=== PATIENT | female | born 1990 | race Caucasian/White ===

== ENCOUNTER 2017-01-29 09:52 | Day surgery (SDC) | payer OTHER ==
[~2017-01-29 09:52] MED LIST: Buffered Lidocaine 0.9% SYRIN* 5 ML/SYR SYRINGE INTRADERM ONE; Buffered Lidocaine 0.9% SYRIN* 5 ML/SYR SYRINGE ONE; Dexamethasone IV* 4 MG/ML 1 ML (4 MG) IV SLOW PU ONE; Dexamethasone IV* 4 MG/ML 1 ML (4 MG) ONE; Famotidine IV* 10 MG/ML 2 ML (20 mg) IV ONE; Famotidine IV* 10 MG/ML 2 ML (20 mg) ONE
[2017-01-29 10:02] LABS: UR Preg Internal Control QC Line Present
[2017-01-29] MEDS ORDERED: Oxymetazoline 0.05% NASAL SPR* 15 ML BTL ONE (10:14)
[2017-01-29] MEDS ORDERED: Lidocaine 4% TOPICAL* 50 ML TOP.SOLN ONE (10:14)
[2017-01-29] MEDS ORDERED: fentaNYL* 50 MCG/ML 2 ML VIAL (100 MCG VIAL) ONE ×2 (10:29→12:06)
[2017-01-29] MEDS ORDERED: Midazolam* 1 MG/ML 2 ML VIAL (2 MG) ONE (10:29)
[2017-01-29] MEDS ORDERED: Ondansetron INJ* 2 MG/ML VIAL ONE (11:18)
[2017-01-29] MEDS ORDERED: fentaNYL* 50 MCG/ML 2 ML VIAL (100 MCG VIAL) IV PRN (11:18)
[2017-01-29] MEDS ORDERED: Ketorolac INJ* 30 MG/ML 1 ML VIAL IV PRN (11:18)
[2017-01-29] MEDS ORDERED: Ketorolac INJ* 30 MG/ML 1 ML VIAL ONE (11:44)
[2017-01-29] MEDS ORDERED: Ondansetron INJ* 2 MG/ML VIAL IV SCH (12:00)
[2017-01-29 12:42] VITALS: BP 119/65
--- NOTE | 2017-01-30 14:58 | OP ---
DATE OF OPERATION: 01/29/17 - [facility] DATE OF : 88 SURGEON: Ganesh Hicks MD. ANESTHESIOLOGIST: Harpreet Mcmillan MD ANESTHESIA: General PRE-OP DIAGNOSIS: Left vocal cord cyst. POST-OP DIAGNOSIS: Left vocal cord cyst. OPERATIVE PROCEDURE: Microlaryngoscopy with excision of left vocal cord cyst under general endotracheal anesthesia. COMPLICATIONS: None. DISPOSITION: Good. SPECIMEN: None. ESTIMATED BLOOD LOSS: None. DESCRIPTION OF PROCEDURE: The patient was taken to the operating room and placed in the supine position on the operating table, general anesthesia induced and she was orotracheally intubated, turned and draped for the surgery. A laryngoscope was inserted and suspended from the suspension system. The microscope was brought in. She had a cyst on the leading edge of the left vocal cord at the mid membranous vocal cord. Cottonoid impregnated with oxymetazoline and 4% lidocaine was placed over this area. It was removed. I did a mini microflap technique, where I took a sickle knife, made a incision through the superior mucosa just lateral to the cyst and then elevated the mucosa off of the cyst by grasping with a open ended grasper and using __ ___. I isolated the cyst, it did pop, and then I sucked the contents out and used micro cup to remove the lining. The flap was laid back. The patient tolerated the procedure well. No complications, transferred to the recovery room in stable condition. [id number] #: [id number] MTDD
== END 2017-01-29 12:43 | disposition home or self-care (01) ==
LOC: OR 09:52
PROVIDERS: ATTEND Otolaryngology
DX: J38.3 Other diseases of vocal cords (principal); R51 Headache; R25.1 Tremor, unspecified
CPT/HCPCS: 81025; A9270-GY; J1100; J1885; J2250; J2405; J3010